=== PATIENT | female | born 1945 | race Caucasian/White ===

== ENCOUNTER → 2022-03-13 | Outpatient (CLI) | payer MEDICARE, BC ==
[~2022-03-13] MED LIST: ALPRAZOLAM0.5 MG PO; CYCLOBENZAPRINE10 MG PO; MODAFINIL200 MG PO; OXYCODONE HCL10 MG PO; [UNRECOGNIZED DRUG - OTHER] PO
[2022-03-13 14:17] LABS: HEMOGLOBIN 14.3 gm/dl (12.3-15.3); RED BLOOD COUNT 5.02 M/UL (4.00-5.10); WHITE BLOOD COUNT 10.3 K/UL (4.5-11.0)
[2022-03-13 14:25] LABS: BUN/CREATININE RATIO 12 (0-10)
== END ==
LOC: OPSV2 12:30
PROVIDERS: Orthopaedic Surgery
DX: Z01.818 Encounter for other preprocedural examination (principal); S52.502A Unspecified fracture of the lower end of left radius, initial encounter for closed fracture; R00.0 Tachycardia, unspecified
CPT/HCPCS: 71046; 80048; 85027; 93005

== ENCOUNTER → 2022-03-14 | Day surgery (SDC) | payer OTHER, MEDICARE, BC ==
[~2022-03-14] VITALS: Ht 162.6 cm; Wt 87.1 kg
== END | disposition home or self-care (01) ==
LOC: OR 06:16
DX: S52.552A Other extraarticular fracture of lower end of left radius, initial encounter for closed fracture (principal); M21.832 Other specified acquired deformities of left forearm; G89.18 Other acute postprocedural pain; V94.0XXA Hitting object or bottom of body of water due to fall from watercraft, initial encounter; E78.5 Hyperlipidemia, unspecified; Z87.891 Personal history of nicotine dependence; F41.9 Anxiety disorder, unspecified; F32.A Depression, unspecified; Z79.899 Other long term (current) drug therapy
CPT/HCPCS: 73110; 76000; C1713; J0690; J1100; J2001; J2405; J2704; J2795; J3010